=== PATIENT | female | born 1995 | race Two or more races ===

== ENCOUNTER 2017-10-15 23:23 | Inpatient (IN) | payer OTHER ==
[~2017-10-15] VITALS: Ht 157.5 cm; Wt 78.0 kg
[~2017-10-15 23:23] MED LIST: ESCI20TA38 PO; PNV1COMB5
[2017-10-15] MEDS ORDERED: LR(*) 1000 ML BAG 1,000 ML IV PRN (23:24)
[2017-10-15 23:44] VITALS: BP 123/80; Ht 157.5 cm; Wt 78.0 kg
[2017-10-16] MEDS ORDERED: FAMOTIDINE(*) 20MG/50ML PREMIX 50 ML IVPB PRN (01:08)
[2017-10-16] MEDS ORDERED: ceFAZolin(*) 2GM/D5W 50ML 50 ML IVPB PRN (01:08)
[2017-10-16] MEDS: LR(*) 1000 ML BAG 1,000 ML IV SCH ×3 (01:08→05:45)
[2017-10-16] MEDS ORDERED: OXYTOCIN 30 UNIT/D5LR 500 ML 500 ML IV PRN ×2 (01:08→01:20)
[2017-10-16] MEDS ORDERED: METOCLOPRAMIDE 10 MG/2 ML SDV IVP PRN (01:10)
[2017-10-16] MEDS ORDERED: LIDOCAINE/SOD BICARB 8.4% SYR SC PRN (01:10)
[2017-10-16] MEDS ORDERED: ONDANSETRON 4 MG/2 ML VIAL IVP PRN ×2 (01:10→04:40)
[2017-10-16] MEDS ORDERED: LIDOCAINE 1% LOCAL 300 MG/30ML INJ PRN (01:10)
[2017-10-16] MEDS ORDERED: FLUSH 10 ML SYR IVP PRN (01:10)
[2017-10-16] MEDS ORDERED: fentaNYL CITR 100 MCG/2 ML AMP IVP PRN (01:10)
--- NOTE | 2017-10-16 01:19 | History & Physical ---
History of Present Illness EDC per LMP: Oct 23, 2017 Estimated Gestational Age: 39.0 Chief Complaint Labor History of Present Illness 22yo at 39w0d presents for contractions. She had her membranes stripped yesterday by Dr. Vargas. She has had regular UCx since 1400 yesterday with increasing intensity over the past couple of hours. She denies VB except some red flecks with wiping. She reports FM. No preeclampsia symptoms. PNR reviewed. PNC by [facility]. c/b depression and Rh negative. History Patient's Blood Type: AB Negative Rubella Status: Immune Group B Strep Screen: Negative Obstetrical History: Primip Past Medical History: PMH: Depression/anxiety PSH: None Allergies: Coded Allergies: Latex (Verified Allergy, Mild, 10/16/17) Avocado (Verified Allergy, 10/16/17) Banana (Verified Allergy, 10/16/17) Social History: No T/E/D. Father of baby in the room. Med Rec Home Meds Reported Medications Pnv #116/Iron Fumarate/Fa/Dha (EXPECTA COMBO PACK) 1 Each Combo..pkg 09/29/17 Escitalopram Oxalate (LEXAPRO) 20 Mg Tablet, 10 MG PO QDAY, TAB 09/29/17 Review of Systems Constitutional: No Fever Eyes: No Vision Change Cardiovascular: No Chest Pain Respiratory: No Shortness of Breath Gastrointestinal: No Nausea, No Vomiting, No Diarrhea Genitourinary: No Dysuria Musculoskeletal: No Pain Psychiatric: Depression, Anxiety Exam General Exam Vital Signs Vital Signs Date Time Temp Pulse Resp B/P (MAP) Pulse Ox O2 Delivery O2 Flow Rate FiO2 10/15/17 23:44 98.6 92 18 123/80 (94) 95 Room Air General Apperance: Alert/Awake/No Acute Distress Neuro: No Gross deficits Eyes: Normal Extraocular Movement & Vison Cardiovascular: Regular Rate and Rhythm Respiratory: No Respiratory Distress Abdomen: Gravid - Non-Tender : Normal Musculoskeletal: No Weakness/Pain Extremities: No Cyanosis,Clubbing or Edema Integumentary: Skin Intact without Lesions or Rash Psychological: Alert & Oriented X3, Appropriate Mood & Affect Cervical Dialation: 5 Cervical Effacement (%): 80 Cervical Consistency: Soft Cervical Position: Mid Station: 0 Presentation: Vertex Uterine Contractions(Q min): 3 Uterine Contraction Strength: Moderate UC Resting Tone: Soft Fetus Feeling Movement?: Yes FHT Decelerations: Variable (One 80 second variable deceleration after admission, but none since) FHT Category: I Medical Decision Making Pre-Admit Course Medical Record Review: Yes VTE Prophylasis: Adult Deep Vein Thrombosis/Pulmonary: No Pharmacological Contraindicati: Pt at Low Risk for VTE Mechanical Contraindications: Pt at Low Risk for VTE Assessment and Plan Problems: (1) Spontaneous onset of labor Assessment & Plan: 22yo at 39w0d presents in labor after membrane stripping. Monitor status after one deceleration and some tachycardia. Baseline has settled into 150s after IVF bolus. Will augment as needed. Epidural if desires later. (2) Rh negative status during , third trimester, single gestation (3) 39 weeks gestation of BONITA ERAZO MD Oct 16, 2017 01:18
--- NOTE | 2017-10-16 01:53 | Labor Progress Note ---
Labor Subjective Progress Notes Subjective Pt is quite uncomfortable with UCx. She would like to get in the bath. Labor Objective Vital Signs Vital Signs Date Time Temp Pulse Resp B/P (MAP) Pulse Ox O2 Delivery O2 Flow Rate FiO2 10/15/17 23:44 98.6 92 18 123/80 (94) 95 Room Air Fetus Heart Tone Variabilty: Minimal FHT Decelerations: None FHT Category: II General Exam General Appearance: Alert/Awake/No Acute Distress Psychological: Alert & Oriented X3, Appropriate Mood & Affect Assessment and Plan Problems: (1) Spontaneous onset of labor Assessment & Plan: FHT were more reassuring after IVF, but the past 20 minutes the variability has decreased and she has not had an accel. Will wait a bit longer to see if this is a sleep cycle. However, I suspect her tachysystole of her contractions is contributing. I discussed with her adding very low dose pitocin to see if it can develop a more productive contraction pattern and also possibly give her and her baby some rest between. She is amenable to this. Monitor status closely. (2) Rh negative status during , third trimester, single gestation Assessment & Plan: Sophia mathis PP. (3) 39 weeks gestation of BONITA ERAZO MD Oct 16, 2017 01:53
[2017-10-16 02:15] LABS: PLATELET COUNT, AUTOMATED 224 K/uL (150-450)
[2017-10-16] MEDS ORDERED: BUPIVACAINE 0.25% MPF INJ EPI PRN (04:40)
[2017-10-16] MEDS ORDERED: fentaNYL CITR 100 MCG/2 ML AMP IT PRN (04:40)
[2017-10-16] MEDS ORDERED: ePHEDrine 25 MG/5 ML DISP.SYR IVP PRN (04:40)
[2017-10-16] MEDS ORDERED: FENTANYL/ROPIVACAINE 100 ML BAG EPI PRN (04:40)
[2017-10-16] MEDS ORDERED: fentaNYL CITR 100 MCG/2 ML AMP ONE (04:51)
[2017-10-16] MEDS ORDERED: ePHEDrine 25 MG/5 ML DISP.SYR IVP ONE (04:51)
[2017-10-16] MEDS ORDERED: BUPIVACAINE 0.25% MPF INJ ONE ×2 (04:51→04:53)
[2017-10-16] MEDS: FENTANYL/ROPIVACAINE 100ML BAG 0 ML ONE ×2 (04:54→05:08)
--- NOTE | 2017-10-16 05:35 | Labor Progress Note ---
Labor Subjective Progress Notes Subjective Pt is now comfortable with epidural. No concerns. Labor Objective Vital Signs Vital Signs Date Time Temp Pulse Resp B/P (MAP) Pulse Ox O2 Delivery O2 Flow Rate FiO2 10/15/17 23:44 98.6 92 18 123/80 (94) 95 Room Air Vaginal Discharge/Fluid?: Clear Fluid Cervical Dialation: 6 Cervical Effacement (%): 100 Cervical Consistency: Soft Station: 0 Presentation: Vertex Uterine Contractions(Q min): 2 Uterine Contraction Strength: Moderate Fetus FHT Category: I General Exam General Appearance: Alert/Awake/No Acute Distress Respiratory: No Respiratory Distress Extremities: No Cyanosis,Clubbing or Edema Integumentary: Skin Intact without Lesions or Rash Psychological: Alert & Oriented X3, Appropriate Mood & Affect Other Result Diagram: 10/16/17 0208 Assessment and Plan Problems: (1) Spontaneous onset of labor Assessment & Plan: Pt is now 6/100/0. She has an epidural. AROM with small clear fluid. Baby appears to be tolerating well. Will continue with pitocin. Anticipate . (2) Rh negative status during , third trimester, single gestation (3) 39 weeks gestation of BONITA ERAZO MD Oct 16, 2017 05:35
--- NOTE | 2017-10-16 10:32 | OB Delivery Note ---
Delivery Note Vaginal Delivery Type: Spont. Vaginal Delivery Delivery Date: Oct 16, 2017 Delivery Time: 10:18 Estimated Gestational Age(wks): 39.0 Length of Labor Stage I (hrs): 3 Length of Labor Stage II (hrs): 1.5 Labor Stage III (minutes): 3 Delivery Anesthesia: Epidural Sex: Male Apgars: 1 Minute (8), 5 Minute (9) Repair Needed: Labial (Bilateral) Estimated Blood Loss: 200 BONITA ERAZO MD Oct 16, 2017 10:32
[2017-10-16] MEDS ORDERED: IBUP800T37 PO (10:34)
[2017-10-16] MEDS ORDERED: LOR5/325 PO (10:34)
[2017-10-16] MEDS ORDERED: GLYCERIN/WITCH HAZEL LEAF 1 PK TOP PRN (10:35)
[2017-10-16] MEDS ORDERED: HYDROCORTISONE 2.5% CR 30GM TB PR PRN (10:35)
[2017-10-16] MEDS ORDERED: MAGNESIUM HYDROXIDE* 30ML UDCP PO PRN (10:35)
[2017-10-16] MEDS ORDERED: BENZOCAINE 20% 60 ML BTL TP PRN (10:35)
[2017-10-16] MEDS ORDERED: ACETAMINOPHEN 325 MG TAB PO PRN (10:35)
[2017-10-16] MEDS ORDERED: LANOLIN OINT 7 GM TUBE TP PRN (10:35)
[2017-10-16] MEDS ORDERED: APAP/HYDROCODONE 325/5 TAB PO PRN (10:35)
[2017-10-16] MEDS ORDERED: INFLUENZA VIRUS VAC 0.5 ML SYR IM ONLY ONE (10:35)
--- NOTE | 2017-10-16 10:53 | Anesthesia OB Pre-Anes Eval ---
History of Present Illness Anesthesia Start Date: Oct 16, 2017 Anesthesia Start Time: 04:48 OB Anesthesia Diagnosis: spontaneous labor EDC: Oct 23, 2017 : 1 Para: 0 Pain Ratin Result Diagram: 10/16/17 0208 Height (Inches): 62.00 Weight (Pounds): 172 BMI Calculated: 31.46 Past Medical History Medical History: no pertinent history, obesity Surgical History: no surgical history Attended Childbirth Classes?: No Hx Anesthesia Reactions: No Hx Family Anesthesia Reaction: No Current Medications: pitocin Home Meds Active Scripts Hydrocodone Bit/Acetaminophen (HYDROCODON-ACETAMINOPHEN 5-325) 1 Each Tablet, 1 EACH PO Q6H Y for pain, #20 TAB 0 Refills Prov:BONITA ERAZO MD 10/16/17 Reported Medications Pnv #116/Iron Fumarate/Fa/Dha (EXPECTA COMBO PACK) 1 Each Combo..pkg 09/29/17 Escitalopram Oxalate (LEXAPRO) 20 Mg Tablet, 10 MG PO QDAY, TAB 09/29/17 Allergies: Coded Allergies: latex (Verified Allergy, Mild, 10/16/17) avocado (Verified Allergy, Unknown, 10/16/17) banana (Verified Allergy, Unknown, 10/16/17) Anesthesia OB ROS Airway Class: l GI ROS: clear liquids, ice chips Last Solids Date: Oct 15, 2017 Last Solids Time: 21:00 ASA Classification: 2 Assessment and Plan Anesthesia Plan: LEB Anesthesia Stop Day: Oct 16, 2017 Anesthesia Stop Time: 10:30 Epidural Catheter Removal: Removed by: (Epicath will be removed later at more convenient time by RN.) CHIRAG DICKINSON CRNA Oct 16, 2017 05:35
--- NOTE | 2017-10-16 10:54 | Procedure Note ---
Anesthetic Placement Note Anesthesia Plan: LEB Permit for Anesthesia Signed: Yes Anesthesia Technique: Patient Sitting Anesthesia Prep: Betadine Interspace: L 4-5 Local Anesthetic: 1% Lidocaine, 25 Gauge Needle Amount Local - cc's: 3 Anesthesia Needle: 17g Touhy/Schliff Anesthesia Attempts: 1 Loss of Resistance: Normal Saline Depth of TALITA (cm): 6.5 Catheter Insertion (cm): 6 Catheter Type: Bowman - Spring Wound Epidural Dressing: Tegaderm, Tape, Adhesive [place] Anesthesia Tray: Lot Number ([id number]), Expiration Date (2018-11-09), Reference Number ([id number]) Anesthesia Medications: Epidural Test Dose: 1.5 Lido/Epi (1:200,000), Dose - mL (3), Time (0501), Negative (No symptoms IT or IV injection.) Epidural Loading Dose: 0.2% Ropivicaine, With Fentanyl 2mcg/ml, Dose - ml ( 15ml in 5ml increments.), Time (0505) Epidural Infusion: 0.2% Ropivicaine, With Fentanyl 2mcg/ml, Start Time: (0519) Epidural Pump Setting: Bolus Dose - mL (4), Lockout - Minutes (15), Maintenance Rate - mL/hr (10), Maximum per Hour - mL (26) Complications: None Comment: Minimal motor block R=L, adequate analgesia. CHIRAG DICKINSON CRNA Oct 16, 2017 05:39
[2017-10-16 11:36] VITALS: BP 119/58
[2017-10-16] MEDS: IBUPROFEN 800 MG TAB PO SCH ×2 (11:46→19:37)
[2017-10-16 19:30] VITALS: BP 122/74
[2017-10-16] MEDS: DOCUSATE CALCIUM 240 MG CAP PO SCH (21:00)
[2017-10-17 01:00] VITALS: BP 100/69
[2017-10-17] MEDS: IBUPROFEN 800 MG TAB PO SCH ×3 (04:54→19:22)
--- NOTE | 2017-10-17 07:05 | OB/GYN Progress Note ---
OB Subjective Progress Notes Subjective Doing well. Pain controlled with oral medications. Tolerating regular diet. Ambulating. Voiding. Normal lochia. No preeclampsia symptoms. Having difficulties with breast feeding. Baby is not latching for more than 5 minutes at a time. She is working with for assistance. OB Objective Physical Exam Vital Signs Date Time Temp Pulse Resp B/P (MAP) Pulse Ox O2 Delivery O2 Flow Rate FiO2 10/17/17 01:00 98.0 83 18 100/69 (79) Room Air 10/16/17 11:36 93 General Appearance: Alert/Awake/No Acute Distress Neurological: No Gross deficits Eyes: Normal Extraocular Movement & Vison Cardiovascular: Normal Rhythm & Peripheral Pulses, Regular Rate and Rhythm Respiratory: No Respiratory Distress, Clear to Auscultation Abdomen: Soft, Non-Tender, Non-Distended, Fundus Firm Extremities: No Cyanosis,Clubbing or Edema Integumentary: Skin Intact without Lesions or Rash Psychological: Alert & Oriented X3, Appropriate Mood & Affect Result Diagram: 10/17/17 0629 Assessment and Plan Problems: (1) examination following vaginal delivery Assessment & Plan: PPD#1 s/p . Having difficulties - will work on these with assistance today. Plan discharge home tomorrow. (2) Rh negative status during , third trimester, single gestation Assessment & Plan: Rhophylac eval pending. (3) 39 weeks gestation of Status: Resolved BONITA ERAZO MD Oct 17, 2017 07:05
[2017-10-17 08:00] VITALS: BP 108/74
[2017-10-17] MEDS: DOCUSATE CALCIUM 240 MG CAP PO SCH ×2 (08:45→21:45)
--- NOTE | 2017-10-17 10:29 | Anesthesia Post Eval Note ---
Anesthesia Post Eval Note Jennie, afebrile. Pt able to participate in Eval: Yes Cardiovascular Status: Satisfactory Respiratory Status: Satisfactory Pain Managment: Satisfactory PO Nausea/Vomiting: Satisfactory Temperature Management: Satisfactory Mental Status: Satisfactory, Alert, Oriented X3 Post-Op Hydration Status: Satisfactory, Tolerating PO Well, Voiding w/o Difficulty Anesthesia Type: LEB (No complications.) CHIRAG DICKINSON [employer]PER[employer] Oct 17, 2017 10:29
[2017-10-17 12:30] VITALS: BP 119/75
[2017-10-17 20:00] VITALS: BP 109/71
[2017-10-18] MEDS: IBUPROFEN 800 MG TAB PO SCH (04:14)
[2017-10-18 07:00] VITALS: BP 106/78
--- NOTE | 2017-10-18 08:02 | OB/GYN Progress Note ---
OB Subjective Progress Notes Subjective Doing well. Pain controlled with oral medications. Tolerating regular diet. Ambulating. Voiding. Normal lochia. No preeclampsia symptoms. Breast feeding is going much better. OB Objective Physical Exam Vital Signs Date Time Temp Pulse Resp B/P (MAP) Pulse Ox O2 Delivery O2 Flow Rate FiO2 10/18/17 07:00 97.0 72 18 106/78 (87) Room Air 10/16/17 11:36 93 General Appearance: Alert/Awake/No Acute Distress Neurological: No Gross deficits Eyes: Normal Extraocular Movement & Vison Cardiovascular: Normal Rhythm & Peripheral Pulses, Regular Rate and Rhythm Respiratory: No Respiratory Distress, Clear to Auscultation Abdomen: Soft, Non-Tender, Non-Distended, Fundus Firm Extremities: No Cyanosis,Clubbing or Edema Integumentary: Skin Intact without Lesions or Rash Psychological: Alert & Oriented X3, Appropriate Mood & Affect Result Diagram: 10/17/17 0629 Assessment and Plan Problems: (1) examination following vaginal delivery Assessment & Plan: PPD#2. Meeting milestones. Desires discharge to home today. Discussed routine expectations. Questions answered. Follow up in clinic in 6wks for check. (2) Rh negative status during , third trimester, single gestation (3) 39 weeks gestation of Status: Resolved BONITA ERAZO MD Oct 18, 2017 08:02
--- NOTE | 2017-10-18 08:03 | OB/GYN Discharge Summary ---
Discharge Summary Reason for Hosp/Final Diag: (1) examination following vaginal delivery Hospital Course & Plan: PPD#2. Meeting milestones. Desires discharge to home today. Discussed routine expectations. Questions answered. Follow up in clinic in 6wks for check. (2) Rh negative status during , third trimester, single gestation (3) 39 weeks gestation of Status: Resolved Lates Vital Signs Vital Signs Date Time Temp Pulse Resp B/P (MAP) Pulse Ox O2 Delivery O2 Flow Rate FiO2 10/18/17 07:00 97.0 72 18 106/78 (87) Room Air 10/16/17 11:36 93 Weight (Pounds): 172 Result Diagram: 10/17/17 0629 Condition: Improved Discharge: Home, Self Nursing Home Meds Active Scripts Hydrocodone Bit/Acetaminophen (HYDROCODON-ACETAMINOPHEN 5-325) 1 Each Tablet, 1 EACH PO Q6H Y for pain, #20 TAB 0 Refills Prov:BONITA ERAZO MD 10/16/17 Reported Medications Pnv #116/Iron Fumarate/Fa/Dha (EXPECTA COMBO PACK) 1 Each Combo..pkg 09/29/17 Escitalopram Oxalate (LEXAPRO) 20 Mg Tablet, 10 MG PO QDAY, TAB 09/29/17 Discharge Diet: As Tolerates Discharge Activity: Pelvic Rest BONITA ERAZO MD Oct 18, 2017 08:03
[2017-10-18] MEDS ORDERED: DIPHTH/TETANUS/ACEL. PERTUSSIS IM ONLY ONE (09:00)
[2017-10-18] MEDS ORDERED: MEASLES,MUMP,RUBELLA VAC 0.5ML SUBQ ONE (09:00)
[2017-10-18] MEDS: DOCUSATE CALCIUM 240 MG CAP PO SCH (09:37)
[2017-10-18] MEDS ORDERED: IBUPROFEN 800 MG TAB PO SCH (12:00)
--- NOTE | 2017-10-19 16:17 | DELIVERY NOTE ---
DELIVERY DATE: October 16, 2017 SURGEON: Liliane Barron MD ANESTHESIA: Epidural. ANESTHESIOLOGIST: Ari Jonas CRNA. PREOPERATIVE DIAGNOSIS Intrauterine at 39 weeks zero days, presenting in spontaneous active labor. POSTOPERATIVE DIAGNOSES 1. Intrauterine at 39 weeks zero days, presenting in spontaneous active labor. 2. Delivery of a viable male infant at 1018 hours with weight unavailable and Apgars of 8 at one minute and 9 at five minutes. PROCEDURES 1. Spontaneous vaginal delivery. 2. Repair of bilateral labial lacerations. ESTIMATED BLOOD LOSS 200 mL INDICATIONS FOR PROCEDURE This patient is a 22-year-old 1, para zero, who presented at 39 weeks zero days with regular contractions after a membrane stripping in the clinic. She presented at 5 cm dilated, 80% effaced, and zero station. She was allowed to progress to 6, 100%, and zero on her own. She received an epidural for anesthesia. After that time, an amniotomy was performed with return of clear fluid. She was started on Pitocin to help augment her labor and was noted to be complete at 0851 hours. She, therefore, was allowed to labor down for approximately one hour prior to pushing. With her pushing, she was able to push effectively and bring the 's vertex to the perineum. PROCEDURE The patient was properly identified and placed in the dorsal lithotomy position. She was prepped and draped in the usual fashion for a vaginal delivery. She was able to deliver the 's vertex spontaneously in the PARMJIT position over an intact perineum. A nuchal cord was checked, but not noted. The anterior shoulder delivered easily, followed by the posterior shoulder. The remainder of the infant was then easily delivered. The had spontaneous cry and spontaneous movement of all four extremities. The oropharynx and nasopharynx were bulb suctioned. The was then dried, stimulated, and passed to the mother's abdomen in good condition. After approximately two minutes, the cord was clamped times two and cut by the father of the baby. Cord blood was then obtained and passed off the table. Pitocin was started in the IV fluid to help firm the uterus. The placenta subsequently delivered spontaneously intact and was passed off the table. Examination of the cervix, vaginal vault, and perineum revealed bilateral labial lacerations which were hemostatic, but still reapproximated with a 4-0 Vicryl for improved healing. The patient tolerated the procedure well. She was able to recover in the labor and delivery room with her . All sponge and needle counts were correct at the end of this procedure. WILLIAM
== END 2017-10-18 17:30 | disposition home or self-care (01) | DRG 775 ==
LOC: OB 23:23
PROVIDERS: ADMIT Obstetrics & Gynecology; ATTEND Obstetrics & Gynecology
PROC: 10E0XZZ Delivery of Products of Conception, External Approach (ICD-10-PCS; principal; 2017-10-16)
PROC: 10907ZC Drainage of Amniotic Fluid, Therapeutic from Products of Conception, Via Natural or Artificial Opening (ICD-10-PCS; 2017-10-16)
PROC: 0HQ9XZZ Repair Perineum Skin, External Approach (ICD-10-PCS; 2017-10-16)
DX: O99.344 Other mental disorders complicating childbirth (principal); O36.0130 Maternal care for anti-D [Rh] antibodies, third trimester, not applicable or unspecified; O70.0 First degree perineal laceration during delivery; Z37.0 Single live birth; F32.9 Major depressive disorder, single episode, unspecified; O76 Abnormality in fetal heart rate and rhythm complicating labor and delivery; Z3A.39 39 weeks gestation of pregnancy; Z91.040 Latex allergy status
CPT/HCPCS: 36415; 85025; 85027; 86850; 86870; 86900; 86901; J2590; J7120